=== PATIENT | female | born 2000 | race Caucasian/White ===

== ENCOUNTER 2023-09-09 19:08 | Emergency (ER) | payer SELFPAY ==
[2023-09-09 19:46] LABS: #Lymphocytes 0.8 thou/uL (1.20-3.40); #Monocytes 0.5 thou/uL (0.11-0.59); #Neutrophils 7.1 thou/uL (1.40-6.50); %Basophils 0.6 % (0.0-1.0); %Eosinophils 0.1 % (0.0-10.0); %Lymphocytes 8.9 % (28.0-48.0); %Monocytes 5.9 % (0.0-4.0); %Neutrophils 84.5 % (31.0-61.0); Hematocrit 36.3 % (36.0-47.0); Hemoglobin 11.6 g/dL (12.0-16.0); Mean Corpuscular Hemoglobin 28.1 pg (25.0-35.0); Mean Corpuscular Volume 87.8 fl (78.0-98.0); Mean Platelet Volume 7.1 fL (7.4-10.4); Platelet Count 223 10x3/uL (130-400); RBC Distribution Width 11.2 % (11.5-14.5); Red Blood Cell (RBC) Count 4.14 mill/uL (4.00-5.20); White Blood Cell (WBC) Count 8.4 10x3/uL (4.8-10.8)
[2023-09-09 19:48] LABS: Bilirubin Negative (Negative); Blood, Urine Negative (Negative); Glucose, Urine (Dipstick) Negative (Negative); Ketone, Urine 15 mg/dL (Negative); Leukocyte Moderate (Negative); Nitrite Negative (Negative); Protein, Urine (Dipstick) Negative (Neg-Trace); Urobilinogen 0.2 mg/dL (Less than 2)
[2023-09-09] MEDS ORDERED: Lorazepam 2 MG/ML VIAL ONE (19:51)
[2023-09-09 19:53] LABS: Clarity Hazy (Clear)
[2023-09-09 19:55] LABS: CAUTI Indications for Culture Fever or rigors; Urine Culture Reflex No No
[2023-09-09 19:58] LABS: Amphetamine Not Detected (NotDetected); Barbiturates Screen Not Detected (NotDetected); Benzodiazepine Screen Not Detected (NotDetected); Cocaine Metabolite Screen Not Detected (NotDetected); Methadone Not Detected (NotDetected); Methamphetamine Not Detected (NotDetected); Opiate Screen Not Detected (NotDetected); Oxycodone Screen Not Detected (NotDetected); Phencyclidine (PCP) Not Detected (NotDetected); THC/Cannabinoid Screen Detected (NotDetected); Tricyclic Screen Not Detected (NotDetected)
[2023-09-09 20:08] LABS: ALT (SGPT) 8 U/L (8-55); AST (SGOT) 14 U/L (5-34); Acetaminophen Less than 10 mcg/mL (10.0-30.0); Albumin 4.1 g/dL (3.5-5.0); Alcohol Less than 10.0 mg/dL (Less than 10); Alkaline Phosphatase 65 U/L (40-100); Anion Gap 18 mmol/L (10-20); BUN (Urea Nitrogen) 15 mg/dL (7.0-18.7); Bilirubin, Total 0.3 mg/dL (0.2-1.2); CK (CPK) 55 U/L (29-168); Calc. Creatinine Clearance 0 mL/min (70-130); Calcium 9.5 mg/dL (7.8-10.44); Carbon Dioxide 12 mmol/L (22-29); Chloride 110 mmol/L (98-107); Estimated GFR 65; Globulin 3.7 g/dL (2.4-3.5); Glucose 139 mg/dL (70-105); Potassium 3.3 mmol/L (3.5-5.1); Protein, Total 7.8 g/dL (6.0-8.3); Salicylate Less than 8.0 mg/dL (15.0-30.0); Sodium 137 mmol/L (136-145)
[2023-09-09 20:18] LABS: Troponin I Less than 0.010 ng/mL (< 0.028)
== END 2023-09-09 22:20 | disposition home or self-care (01) ==
LOC: NAV ERS 19:08
DX: T40.721A Poisoning by synthetic cannabinoids, accidental (unintentional), initial encounter (principal); R00.0 Tachycardia, unspecified
CPT/HCPCS: 80053; 80306; 80307; 81001; 82550; 83605; 84443; 84484; 85025; 93005; 96374; J2060